=== PATIENT | male | born 1985 | race Two or more races ===

== ENCOUNTER 2018-02-12 02:40 | Emergency (ER) | payer OTHER ==
[~2018-02-12] VITALS: Ht 167.6 cm; Wt 61.2 kg
--- NOTE | 2018-02-12 02:50 | NUR ---
PT [facility] 39 AND [employer] FOR WITNESSED TONIC CLONIC SEIZURE X 1 MIN DURING BOOKING. PT AGGITATED TO TOUCH AND PLACED ON RESTRAINTS. NAD AT THIS TIME.
--- NOTE | 2018-02-12 03:00 | NUR ---
LABS DRAWN BY CHIEF NURSING EXECUTIVE
--- NOTE | 2018-02-12 03:05 | NUR ---
IV PLACED ON LEFT UPPER ARM. 20G.
[2018-02-12 03:12] LABS: BASOPHILS % (AUTO) 0.3 % (0.0-2.0); EOSINOPHILS % (AUTO) 0.6 % (0.0-6.0); HEMATOCRIT 46 % (39-51); HEMOGLOBIN 14.9 g/dL (13.5-17.5); LYMPHOCYTES # (AUTO) 1.4 /CMM (0.8-4.8); LYMPHOCYTES % (AUTO) 19.5 % (20.0-44.0); MEAN CORPUSCULAR HEMOGLOBIN 28 PG (26.0-33.0); MEAN CORPUSCULAR HGB CONC 33 g/dl (31.0-36.0); MEAN CORPUSCULAR VOLUME 86 fL (80-96); MONOCYTES # (AUTO) 0.2 /CMM (0.1-1.30); MONOCYTES % (AUTO) 2.8 % (2.0-12.0); NEUTROPHILS # (AUTO) 5.6 /CMM (1.8-8.9); NEUTROPHILS % (AUTO) 76.8 % (43.0-81.0); PLATELET COUNT (AUTO) 260 /CMM (150-450); RDW COEFFICIENT OF VARIATION 13.9 (11.5-15.0); RED BLOOD CELL COUNT(AUTO) 5.33 MIL/uL (4.5-6.0); WHITE BLOOD COUNT (AUTO) 7.3 K/uL (4.3-11.0)
[2018-02-12 03:23] LABS: CALCIUM, SERUM 8.5 mg/dL (8.5-10.1); CARBON DIOXIDE 20 mmol/L (21-32); CHLORIDE 103 mmol/L (98-107); GLUCOSE 114 mg/dL (74-106); POTASSIUM 3.4 mmol/L (3.5-5.1); SODIUM SERUM 137 mmol/L (136-145); UREA NITROGEN, BLOOD 16 mg/dL (7-18)
[2018-02-12 03:28] LABS: ALANINE AMINOTRANSFERASE 19 U/L (12-78); ALBUMIN 3.8 g/dL (3.4-5.0); ALCOHOL, BLOOD < 3 mg/dL (0-0); ALKALINE PHOSPHATASE 83 U/L (46-116); ASPARTATE AMINOTRANSFERASE 21 U/L (15-37); BILIRUBIN,DIRECT 0.1 mg/dL (0.0-0.2); BILIRUBIN,TOTAL 0.4 mg/dL (0.2-1.0)
--- NOTE | 2018-02-12 03:44 | NUR ---
[employer] LEAVING BEDSIDE, PT NO LONGER IN CUSTODY. PT OFF RESTRAINTS.
--- NOTE | 2018-02-12 04:03 | NUR ---
PT TAKEN TO CT BY RADIOLOGY
--- NOTE | 2018-02-12 04:56 | NUR ---
IV removed. Catheter intact and site benign. Pressure and 4x4 applied to site. No bleeding noted. Patient discharged to home in stable condition. Written and verbal after care instructions given. Patient verbalizes understanding of instruction.
[2018-02-12 04:57] VITALS: BP 105/70
== END 2018-02-12 04:59 | disposition home or self-care (01) ==
LOC: ER 02:42
DX: G40.909 Epilepsy, unspecified, not intractable, without status epilepticus (principal)
CPT/HCPCS: 36415; 70450; 71045; 80048; 80076; 82962; 85025; 93005; 99285; A4606; G0480; Z7610